=== PATIENT | female | born 1990 | race Caucasian/White ===

== ENCOUNTER 2018-01-01 21:18 | Emergency (ER) | payer SELFPAY ==
[2018-01-01] MEDS ORDERED: hydrOXYzine 25 MG TAB ONE (23:21)
[2018-01-01] MEDS ORDERED: hydrOXYzine 25 MG TAB PO SCH (23:30)
== END 2018-01-01 23:50 | disposition home or self-care (01) ==
LOC: ERS 21:18
DX: L56.4 Polymorphous light eruption (principal); L56.8 Other specified acute skin changes due to ultraviolet radiation; F17.210 Nicotine dependence, cigarettes, uncomplicated
CPT/HCPCS: 99282

== ENCOUNTER 2018-01-05 16:30 | Emergency (ER) | payer SELFPAY ==
[2018-01-05] MEDS ORDERED: Famotidine/PF 20 mg/2ml Vial ONE (17:12)
[2018-01-05] MEDS ORDERED: Dexamethasone 4 mg/ml Vial ONE (17:12)
== END 2018-01-05 18:24 | disposition home or self-care (01) ==
LOC: ERS 16:30
DX: T63.441A Toxic effect of venom of bees, accidental (unintentional), initial encounter (principal); F17.210 Nicotine dependence, cigarettes, uncomplicated
CPT/HCPCS: 96361; 96374; 96375; J1100; S0028

== ENCOUNTER 2018-02-03 19:10 | Emergency (ER) | payer SELFPAY ==
[2018-02-03] MEDS ORDERED: Clindamycin 150 MG CAP ONE (20:12)
[2018-02-03] MEDS ORDERED: hydrOXYzine 25 MG TAB ONE (20:12)
== END 2018-02-03 20:23 | disposition home or self-care (01) ==
LOC: ERS 19:10
DX: L03.113 Cellulitis of right upper limb (principal); F17.210 Nicotine dependence, cigarettes, uncomplicated
CPT/HCPCS: 99283